=== PATIENT | male | born 1985 | race Caucasian/White ===

== ENCOUNTER 2019-05-28 22:14 | Emergency (ER) | payer BC ==
--- NOTE | 2019-05-28 22:55 | EDM.PDOC ---
ED HPI GENERAL MEDICAL PROBLEM - General Chief Complaint: Respiratory Problem Stated Complaint: SOB/CONGESTION/FEVER Time Seen by Provider: 05/28/19 22:36 Source of Information: Reports: Patient, Family (Sister) History Limitations: Reports: No Limitations - History of Present Illness INITIAL COMMENTS - FREE TEXT/NARRATIVE: Mr. Wade is a very pleasant 34-year-old man with no chronic medical problems, who states that he developed chest congestion and a persistent cough productive of yellowish sputum, dyspnea, wheezing, fever, with a Tmax of 101.7 degrees and just [employer], body aches, this past , 05/26/2019. He has also had a headache on and off since then. He states that his cough and wheezing are worse when he is supine, to the point that he has difficulty sleeping, because his chest is making so much noise. He states that he has tried to treat his symptoms with Goetz's, DayQuil Severe and NyQuil Severe, all without significant relief. No prior similar symptoms. Here in the ED, the patient is found to be mildly tachypneic and tachycardic, but afebrile, saturating 93% on room air. The patient does not have a PCP. He received an influenza vaccine this season. Headache Pain Score (Numeric/FACES): 5 - Related Data Allergies Allergy/AdvReac Type Severity Reaction Status Date / Time No Known Allergies Allergy Verified 05/28/19 22:22 Home Meds: Home Meds . [No Known Home Meds] 05/28/19 [History] Past Medical History - Past Surgical History HEENT Surgical History: Reports: Myringotomy w Tube(s) (bilateral, x 3), Tonsillectomy Social & Family History - Tobacco Use Smoking Status *Q: Former Smoker Years of Tobacco use: 10 Packs/Tins Daily: 1 Month/Year Tobacco Last Used: Quit 2013 - Caffeine Use Caffeine Use: Reports: Coffee, Soda, Tea - Alcohol Use Alcohol Use History: Yes Alcohol Use Frequency: Socially - Recreational Drug Use Recreational Drug Use: No - Living Situation & Occupation Living situation: Reports: Single, with Family (Sister + her family) Occupation: Employed (Manager Of Manufacturing) ED ROS GENERAL - Review of Systems Review Of Systems: Comprehensive ROS is negative, except as noted in HPI. ED EXAM, GENERAL - Physical Exam Exam: See Below Exam Limited By: No Limitations General Appearance: Alert, WD/WN, No Apparent Distress Eye Exam: Bilateral Eye: EOMI, Normal Inspection Ears: Normal External Exam, Hearing Grossly Normal Nose: Normal Inspection Throat/Mouth: Normal Inspection, Normal Lips, Normal Voice, No Airway Compromise Head: Atraumatic, Normocephalic Neck: Normal Inspection, Full Range of Motion Respiratory/Chest: No Respiratory Distress, No Accessory Muscle Use, Rhonchi ( loud, expiratory), Wheezing (loud, expiratory). No: Decreased Breath Sounds, Crackles, Stridor, Prolonged Expiration Cardiovascular: Normal Peripheral Pulses, Regular Rate, Rhythm, No Edema, No Gallop, No JVD, No Murmur, No Rub Peripheral Pulses: 4+: Radial (L), Radial (R) GI/Abdominal: Normal Bowel Sounds, Soft, Non-Tender, No Organomegaly, No Distention, No Abnormal Bruit, No Mass (Male) Exam: Deferred Rectal (Males) Exam: Deferred Back Exam: Normal Inspection, Full Range of Motion, NT Extremities: Normal Inspection, Normal Range of Motion, No Pedal Edema, Normal Capillary Refill Neurological: Alert, Oriented, Normal Cognition, No Motor/Sensory Deficits Psychiatric: Normal Affect Skin Exam: Warm, Dry, Intact, Normal Color, No Rash Course - Vital Signs Last Recorded V/S: Last Vital Signs Temp 37.3 C 05/28/19 22:26 Pulse 105 H 05/28/19 22:26 Resp 28 H 05/28/19 22:26 BP 134/67 05/28/19 22:26 Pulse Ox 93 L 05/28/19 22:26 - Orders/Labs/Meds Orders: Active Orders 24 hr Category Date Time Status Chest 2V [CR] Stat Exams 05/28/19 22:44 Taken - Re-Assessments/Exams Free Text/Narrative Re-Assessment/Exam: 05/28/19 22:46 Clinically, the patient is suffering from bronchitis insofar as he has a persistent cough with mild wheezing, both made worse when he is supine. For today's purposes, I have ordered an influenza swab and chest x-ray, both of which I anticipate will be negative. Unless his chest x-ray demonstrates an infiltrate, I do not see the need for blood work at this time. 05/28/19 23:39 Two-view chest radiograph appears to be grossly normal. The cardiac silhouette is within normal limits. No pulmonary vascular congestion. No pleural effusions. No focal infiltrate. No pneumothorax. Formal read per the Radiologist pending. The patient's influenza swab returned negative. 05/28/19 23:42 Test results discussed with the patient and his sister. As above, the patient is suffering from acute viral bronchitis. I explained that, unfortunately, there are no medicines that have been shown to be of benefit - not antibiotics, inhalers, cough suppressants, including opioid-containing cough suppressants, or anti-inflammatories, and that this illness will simply have to run its course. The patient expressed understanding. Departure - Departure Time of Disposition: 23:43 Disposition: Home, Self-Care 01 Condition: Good Clinical Impression: Acute bronchitis - Discharge Information *PRESCRIPTION DRUG MONITORING PROGRAM REVIEWED*: Not Applicable *COPY OF PRESCRIPTION DRUG MONITORING REPORT IN PATIENT NATALI: Not Applicable Instructions: Acute Bronchitis, Adult, [id number] Referrals: PCP,None [Primary Care Provider] - Forms: ED Department Discharge Additional Instructions: You were seen in the emergency room for a cough, chest congestion, shortness of breath, body aches, fever, and a headache, since , 05/26/2019. Work-up in the ER included an influenza swab and a chest x-ray, both of which returned negative. You are not suffering from influenza, and you do not have pneumonia. Based on your history, physical exam, and ER tests, you are suffering from acute viral bronchitis. Unfortunately, there are no medicines to treat acute bronchitis - it will have to run its course, which typically takes 2 to 3 weeks. Consider trying to sleep in a recliner, in order to be more upright. If any other problems, please do not hesitate to return to the ER. Sepsis Event Note - Evaluation Sepsis Screening Result: No Definite Risk - Focused Exam Vital Signs: Vital Signs Temp Pulse Resp BP Pulse Ox 05/28/19 22:26 37.3 C 105 H 28 H 134/67 93 L Date Exam was Performed: 05/28/19 Time Exam was Performed: 23:58 - My Orders Last 24 Hours: My Active Orders 05/28/19 22:44 Chest 2V [CR] Stat - Assessment/Plan Last 24 Hours: My Active Orders 05/28/19 22:44 Chest 2V [CR] Stat
--- NOTE | 2019-05-29 06:26 | CR ---
Chest: 2 views of the chest were obtained. Comparison: No prior chest imaging. Heart size and mediastinum are normal. Lungs are clear with no acute parenchymal change. Bony structures are unremarkable. Impression: 1. Nothing acute is seen on 2 view chest x-ray. Diagnostic code #1 This report was dictated in [place] Standard Time
== END 2019-05-28 23:49 | disposition home or self-care (01) ==
LOC: JD.ED 22:14
DX: J20.9 Acute bronchitis, unspecified (principal); Z87.891 Personal history of nicotine dependence
CPT/HCPCS: 71046; 71046-26; 87804; 99282; 99285-25

== ENCOUNTER 2021-08-26 18:23 | Emergency (ER) | payer OTHER ==
[2021-08-26] MEDS ORDERED: Sodium Chloride 0.9% 1,000 ML IV SCH (19:15)
[2021-08-26] MEDS: Sodium Chloride 0.9% 10 ML Syringe FLUSH PRN ×2 (19:44→20:02)
[2021-08-26] MEDS ORDERED: Iopamidol 612 MG/ML 100 ML Bottle IVPUSH ONE (19:53)
[2021-08-26] MEDS ORDERED: Iopamidol 612 MG/ML 50 ML SDV IVPUSH ONE (19:53)
== END 2021-08-26 21:45 | disposition home or self-care (01) ==
LOC: JD.ED 18:23
DX: K52.9 Noninfective gastroenteritis and colitis, unspecified (principal); K92.1 Melena; F17.210 Nicotine dependence, cigarettes, uncomplicated
CPT/HCPCS: 36415; 74177; 80053; 83690; 85025; 85610; 85730; 87493; 96360; 96361; 99284; J3490; J7030; Q9967; 99283

== ENCOUNTER 2022-11-06 11:43 | Emergency (ER) | payer OTHER ==
[2022-11-06] MEDS ORDERED: Sodium Chloride 0.9% 1,000 ML IV ONE (12:22)
[2022-11-06] MEDS ORDERED: Ondansetron 4 MG/2 ML SDV IVPUSH ONE (12:22)
[2022-11-06] MEDS ORDERED: Sodium Chloride 0.9% 10 ML Syringe FLUSH PRN (12:22)
[2022-11-06 12:56] LABS: BASOPHILS ABSOLUTE AUTO 0.06 K/mm3 (0.01-0.08); EOSINOPHILS ABSOLUTE AUTO 0.34 K/mm3 (0.04-0.54); EOSINOPHILS PERCENT AUTO 5.7 (0.8-7.0); HEMATOCRIT 41.5 % (40.1-51.0); HEMOGLOBIN 13.8 gm/dl (13.7-17.5); IMMATURE GRAN ABSOLUTE AUTO 0.01 K/mm3 (0.00-0.10); IMMATURE GRAN PERCENT AUTO 0.2 % (<=1.0); LYMPHOCYTES ABSOLUTE AUTO 1.96 K/mm3 (1.32-3.57); MEAN CORPUSCULAR HEMOGLOBIN 29.7 pg (25.7-32.2); MEAN CORPUSCULAR HGB CONC 33.3 g/dl (32.2-35.5); MEAN CORPUSCULAR VOLUME 89.2 fl (79.0-92.2); MEAN PLATELET VOLUME 11.3 fl (9.4-12.3); MONOCYTES ABSOLUTE AUTO 0.39 K/mm3 (0.30-0.82); MONOCYTES PERCENT AUTO 6.6 % (5.3-12.2); NEUTROPHILS ABSOLUTE AUTO 3.18 K/mm3 (1.78-5.38); NEUTROPHILS PERCENT AUTO 53.5 % (34.0-67.9); PLATELET COUNT,PLT 185 K/mm3 (163-337); RED BLOOD CELL COUNT 4.65 M/mm3 (4.63-6.08); WHITE BLOOD CELL COUNT,WBC 5.94 K/mm3 (4.23-9.07)
[2022-11-06 13:19] LABS: A/G RATIO 1.2 (1-2); ALANINE AMINOTRANSFERASE,ALT 20 U/L (16-63); ALBUMIN 3.9 g/dl (3.4-5.0); ALKALINE PHOSPHATASE 57 U/L (46-116); ANION GAP 12.5 (5-15); ASPARTATE AMNIOTRANSFERASE,AST 15 U/L (15-37); BILIRUBIN TOTAL 1.4 mg/dL (0.2-1.0); BLOOD UREA NITROGEN,BUN 14 mg/dL (7-18); BUN/CREATININE RATIO 12.7 (14-18); CALCIUM 8.8 mg/dL (8.5-10.1); CARBON DIOXIDE,CO2 26 mEq/L (21-32); CHLORIDE,CL 104 mEq/L (98-107); CREATININE 1.1 mg/dL (0.7-1.3); EST CRCL DRUG DOSING (CG) 100.92 mL/min; ESTIMATED GFR 89 mL/min (>60); GLUCOSE RANDOM 102 mg/dL (70-99); POTASSIUM,K 3.5 mEq/L (3.5-5.1); PROTEIN TOTAL,TP 7.2 g/dl (6.4-8.2); SODIUM,NA 139 mEq/L (136-145)
[2022-11-06 13:33] LABS: TROPONIN I HIGH SENSITIVITY < 4 pg/mL (<=76)
== END 2022-11-06 15:20 | disposition home or self-care (01) ==
LOC: JD.ED 11:43
DX: R55 Syncope and collapse (principal); H53.8 Other visual disturbances; J45.909 Unspecified asthma, uncomplicated
CPT/HCPCS: 36415; 70450; 80053; 83735; 84484; 85025; 93005; 93246; 96361; 96374; 99284; J2405; J3490; J7030; 93010